=== PATIENT | female | born 1975 | race Two or more races ===

== ENCOUNTER 2019-04-13 11:10 | Inpatient (IN) | payer MEDICAID, OTHER ==
[~2019-04-13] VITALS: Ht 175.3 cm; Wt 79.4 kg
[2019-04-13 08:00] VITALS: BP 93/58
[2019-04-13] MEDS ORDERED: LEVOFLOXACIN 500MG PREMIX 100 ML IV ONE (12:30)
[2019-04-13] MEDS ORDERED: SODIUM CHLORIDE 0.9% 1000ML BAG (SEPSIS BOLUS) IV ONE (12:30)
[2019-04-13 12:56] LABS: BASOPHILS % 0.3 % (0.0-2.0); EOSINOPHILS % 0.5 % (0.0-5.0); HEMATOCRIT. 34.6 % (36.0-48.0); HEMOGLOBIN. 11.3 g/dL (12.0-16.0); MEAN CORPUSCULAR HEMOGLOBIN 25.1 pg (28.0-32.0); MEAN CORPUSCULAR VOLUME 76.8 fL (81.0-99.0); MEAN PLATELET VOLUME 7.2 fl (7.4-10.4); MONOCYTES % 5.6 % (2.0-8.0); NEUTROPHILS % 85.6 % (40.0-76.0); PLATELET 279 x1000/uL (130-400); RED BLOOD CELL COUNT 4.51 mill/uL (4.2-5.4); RED CELL DISTRIBUTION WIDTH 17.8 % (11.6-14.6)
[2019-04-13 12:59] LABS: CHLORIDE 108 mEq/L (98-107)
[2019-04-13 13:03] LABS: PROTHROMBIN TIME 10.4 sec (9.6-11.0)
[2019-04-13 13:19] LABS: HCG SCREEN NEGATIVE
[2019-04-13] MEDS ORDERED: OSELTAMIVIR 75MG CAPSULE PO ONE (13:45)
[2019-04-13] MEDS ORDERED: KETOROLAC 30MG/ML VIAL IV ONE (13:45)
[2019-04-13 15:35] LABS: CLARITY URINE CLEAR (CLEAR); COLOR URINE YELLOW (YELLOW); KETONES URINE NEGATIVE (NEGATIVE); LEUKOCYTE ESTERASE URINE 3+ (NEGATIVE); NITRITE URINE POSITIVE (NEGATIVE); OCCULT BLOOD URINE TRACE (NEGATIVE); PROTEIN URINE 1+ (NEGATIVE); SPECIFIC GRAVITY URINE 1.005 (1.005-1.030); UROBILINOGEN URINE 0.2 E.U./dL (0.2-1.0)
[2019-04-13 16:00] VITALS: BP 106/63
[2019-04-13 16:30] VITALS: BP 107/62
[2019-04-13] MEDS ORDERED: ONDANSETRON HCL 4MG/2ML INJ IV PRN (18:30)
[2019-04-13] MEDS ORDERED: DOCUSATE SODIUM 100MG CAPSULE PO PRN (18:30)
[2019-04-13] MEDS ORDERED: CLONIDINE 0.1MG TABLET PO PRN (18:30)
[2019-04-13] MEDS ORDERED: GUAIFENESIN 200MG/10ML SUGAR FREE UDC PO PRN (18:30)
[2019-04-13] MEDS ORDERED: LEVOFLOXACIN 500MG PREMIX 100 ML IV SCH (18:30)
[2019-04-13 20:00] VITALS: BP 131/76
[2019-04-13] MEDS ORDERED: ENOXAPARIN 40MG/0.4ML SYR SUBCUT SCH (21:00)
[2019-04-13] MEDS ORDERED: INFLUENZA VIRUS VACCINE(AFLURIA) 0.5ML SYR IM ONE (21:00)
[2019-04-13] MEDS: SODIUM CHLORIDE 0.45% 1,000 ML IV SCH (21:07)
[2019-04-13] MEDS: ACETAMINOPHEN 325MG TABLET PO PRN (21:28)
[2019-04-14] VITALS: BP 119/73
[2019-04-14 04:00] VITALS: BP 102/61
[2019-04-14 08:00] VITALS: BP 96/40
[2019-04-14] MEDS: SODIUM CHLORIDE 0.45% 1,000 ML IV SCH (08:42)
[2019-04-14] MEDS: ACETAMINOPHEN 325MG TABLET PO PRN (10:30)
[2019-04-14] MEDS ORDERED: LEVOFLOXACIN 500MG PREMIX 100 ML IV SCH (11:00)
[2019-04-14 11:34] LABS: BASOPHILS % 0.3 % (0.0-2.0); EOSINOPHILS % 1.9 % (0.0-5.0); HEMATOCRIT. 31.6 % (36.0-48.0); HEMOGLOBIN. 10.3 g/dL (12.0-16.0); LYMPHOCYTES % 33.3 % (20.0-50.0); MEAN CORPUSCULAR HEMOGLOBIN 25.2 pg (28.0-32.0); MEAN PLATELET VOLUME 7.7 fl (7.4-10.4); MONOCYTES % 9.4 % (2.0-8.0); NEUTROPHILS % 55.1 % (40.0-76.0); PLATELET 264 x1000/uL (130-400); RED CELL DISTRIBUTION WIDTH 17.8 % (11.6-14.6)
[2019-04-14 11:51] LABS: CHLORIDE 109 mEq/L (98-107)
[2019-04-14 12:33] VITALS: BP 113/68
== END 2019-04-14 12:55 | disposition home or self-care (01) | DRG 463 ==
LOC: ER 11:10 → 6EST 14:15 → EDBEDREQSVC 14:21 → EDBEDREQ 14:21 → ENRESERV 14:53
PROVIDERS: ADMIT Hospitalist; ATTEND Hospitalist
DX: N39.0 Urinary tract infection, site not specified (principal)
CPT/HCPCS: 36415; 71045; 80053; 81003; 83605; 83880; 84145; 84484; 84703; 85025; 87077; 87186; 87804; 90686; 93005; 93970; 99291; J1650; J1885; J1956; J2405; J7030